=== PATIENT | male | born 1955 | race Caucasian/White ===

== ENCOUNTER 2018-10-24 01:25 | Observation (INO) | payer MEDICARE ==
[~2018-10-24] VITALS: Ht 154.9 cm; Wt 97.3 kg
--- NOTE | ~2018-10-24 | HEMODYNAMI ---
PATIENT:ZORAN MAS MEDICAL RECORD: [id number] : 57 LOCATION:[address] ADMISSION DATE: 10/24/18 Generatedon:10/24/201815:46 Patient name: ZORAN MAS Patient #: [id number] SSN: : Date of study: 10/24/2018 Page: Of Hemodynamic Procedure Report Patient Data Patient Demographics Procedure consent was obtained First Name: ZORAN Gender: Male Last Name: TG : 1955 Patient #: [id number] Age: 63 year(s) Race: Unknown Additional ID: [id number] Contact details Address: [address] [place] [address] rd State: [place] City: [place] Zip code: [address] Past Medical History Allergies Allergen Reaction Date Comments Reported Other allergy 10/24/2018 ASA Admission Admission Data Admission Date: 10/24/2018 Admission Time: 2:41 Room #: 2122 Lab Results Lab Result Date: 10/24/2018 Lab Result Time: 0:00 Biochemistry Name Units Result Min Max BUN mg/dl 14 --(--*-)-- 7 18 Creatinine mg/dl 0.6 --(*---)-- 0.6 1.3 CBC Name Units Result Min Max Hemoglobin g/dl 11.4 *-(----)-- 13.5 17.5 Procedure Procedure Types Cath Procedure Diagnostic Procedure [facility] w/Coronaries Sedation Charges Moderate Sedation up to 15 minutes PCI Procedure Coronary Stent Coronary Stent Initial Procedure Description Procedure Date Procedure Date: 10/24/2018 Procedure Start Time: 15:28 Procedure End Time: 15:43 Procedure Staff Name Function Denver Clarke MD Performing Physician Bushra Perea RT Monitor Nalini Collazo RN Nurse Beverley Fay RT Scrub Procedure Data Cath Procedure Fluoroscopy Diagnostic fluoroscopy Total fluoroscopy Time: 3.5 time: 3.5 min min Diagnostic fluoroscopy Total fluoroscopy dose: 766 dose: 766 mGy mGy Contrast Material Contrast Material Type Amount (ml) Isovue 300 101 Entry Location Entry Primary Successful Side Size Upsize Upsize Entry Closure Succes sful Closure Location (Fr) 1 (Fr) 2 (Fr) Remarks Device Remarks Femoral Right 5 Fr 6 Fr Exoseal artery Short Estimated blood loss: 10 ml Diagnostic catheters Device Type Used For End Catheter Placement MULTIPACK JL 4.0 5Fr Procedure catheter MULTIPACK 3DRC 5Fr Procedure catheter MULTIPACK Pigtail 5 Fr Procedure catheter Procedure Complications No complications Procedure Medications Medication Administration Route Dosage Oxygen etCO2 Nasal cannula 2 l/min Heparin Flush Bag added to field 2 bags (1000units/500ml NS) 0.9% NaCl I.V. 100 ml/hr Lidocaine 2% added to field 20 Fentanyl I.V. 50 mcg Versed I.V. 1 mg Fentanyl I.V. 50 mcg Versed I.V. 1 mg Heparin Bolus I.V. 4000 units Integrilin (Bolus I.V. 9 ml 2mg/ml) Integrilin (Bolus wasted 1 ml 2mg/ml) Fentanyl I.V. 50 mcg Fentanyl I.V. 50 mcg Plavix P.O. 600 mg Hemodynamics Rest HGB: 11.4 (g/dl) Heart Rate: 47 (bpm) Pressure Samples Time Site Value (mmHg) Purpose Heart Use Rate(bpm) 15:33 LV 130/-6,16 EDP 60 15:33 AO 125/58(87) Pullback 62 15:33 LV 141/15,27 Pullback 62 Gradients Valve Time Site 1 Site 2 Mean SEP/DFP Peak To Heart Use (mmHg) (sec/min) Peak Rate (mmHg) (bpm) Aortic 15:33 LV AO 16 21 16 62 141/15,27 125/58(87) Calculations Valve P-P Mean Valve Index Valve Source Name Gradient Area Flow (cm2) Aortic 16 16 16 16 Snapshots Pre Cath Intra NCS Post Cath Vital Signs Time Heart Resp SPO2 etCO2 NIBP (mmHg) Rhythm Pain Sedation Rate (ipm) (%) (mmHg) Status Level (bpm) 15:19:24 49 17 99 30.8 136/75(94) NSR 0 (11) 10(A) , No pain 15:23:30 56 16 99 40.6 130/73(93) NSR 0 (11) 10(A) , No pain 15:27:31 58 16 98 39.8 115/81(92) NSR 0 (11) 9(A) , No pain 15:31:39 59 16 96 40.6 126/73(96) NSR 0 (11) 9(A) , No pain 15:35:49 65 17 98 36 131/77(110) NSR 0 (11) 9(A) , No pain 15:40:01 66 16 95 38.3 127/75(108) NSR 0 (11) 9(A) , No pain 15:43:30 64 17 96 42.1 131/85(113) NSR 0 (11) 9(A) , No pain Medications Time Medication Route Dose Verified Delivered Reason Notes Effectiveness by by 15:21:32 Oxygen etCO2 2 Buffie Denver Per physician Nasal l/min Vale Clarke cannula 15:21:39 Heparin Flush added 2 Buffie Denver used for Bag to bags Vale Clarke procedure (1000units/500ml field TORIBIO NS) 15:21:50 0.9% NaCl I.V. 100 Buffie Denver Per physician ml/hr Vale Clarke MD 15:22:00 Lidocaine 2% added 20ml Buffie Denver used for to vial Vale Clarke procedure field TORIBIO 15:24:36 Fentanyl I.V. 50 Buffie Denver for sedation mcg Vale Clarke MD 15:24:42 Versed I.V. 1 mg Buffie Denver for sedation Vale Clarke MD 15:29:03 Fentanyl I.V. 50 Buffie Denver for sedation mcg Vale Clarke MD 15:29:07 Versed I.V. 1 mg Buffie Denver for sedation Vale Clarke MD 15:35:03 Heparin Bolus I.V. 4000 Buffie Denver for units Vale Clarke anticoagulation 15:35:13 Integrilin I.V. 9 ml Buffie Denver for (Bolus 2mg/ml) Vale Clarke antiplatelet therapy 15:35:18 Integrilin wasted 1 ml Buffie Denver for (Bolus 2mg/ml) Vale Clarke antiplatelet therapy 15:35:42 Fentanyl I.V. 50 Buffie Denver for sedation mcg Vale Clarke MD 15:38:19 Fentanyl I.V. 50 Buffie Denver for sedation mcg Vale Clarke MD 15:42:39 Plavix P.O. 600 Buffie Denver for mg Vale RN Tricia antiplatelet therapy Procedure Log Time Note 14:54:55 Time tracking: Call back (After hours or weekends) 14:54:58 Plan of Care:Hemodynamics will remain stable., Cardiac rhythm will remain stable., Comfort level will be maintained., Respiratory function will remain adequate., Patient/ family verbilizes understanding of procedure., Procedure tolerated without complication., Recovers from procedure without complications.. 15:18:13 Vital chart was started 15:18:56 Patient received from Med II to CCL 2 Alert and oriented. Tansferred to table in Supine position. 15:18:58 Warm blankets applied, and lorena hugger turned on for patient comfort. 15:18:58 Correct patient and procedure confirmed by team. 15:18:59 Signed procedure consent form obtained from patient. 15:19:00 ECG and BP/O2 sat monitors applied to patient. 15:19:02 Baseline sample Acquired. 15:19:06 Rhythm: sinus rhythm 15:19:08 Full Disclosure recording started 15:19:16 H&P Date Dictated: 10/23/2018 Within 30 days and on chart., H&P Addendum completed by physician on day of procedure. (MUST COMPLETE FOR ALL OUTPATIENTS). 15:19:17 Pre-procedure instructions explained to patient. 15:19:19 Family in waiting room. 15:19:22 Patient NPO since Midnight. 15:19:31 Patient allergic to Other allergyASA 15:19:34 Is the patient allergic to Iodine/contrast media? No. 15:19:36 Is patient on blood thinner?No 15:19:37 Patient diabetic? No. 15:19:41 Snore? Yes 15:19:43 Sleep apnea? No 15:19:50 Patient pain scale 0/10 ?. 15:20:36 IV patent on arrival in left hand with 0.9% NaCl at [facility]. 15:20:42 Lab results completed and on chart. 15:21:32 Oxygen 2 l/min etCO2 Nasal cannula was administered by Denver Clarke MD; Per physician; 15:21:39 Heparin Flush Bag (1000units/500ml NS) 2 bags added to field was administered by Denver Clarke MD; used for procedure; 15:21:50 0.9% NaCl 100 ml/hr I.V. was administered by Denver Clarke MD; Per physician; 15:22:00 Lidocaine 2% 20ml vial added to field was administered by Denver Clarke MD; used for procedure; 15:23:04 Lab Result : BUN 14 mg/dl 15:23:04 Lab Result : Creatinine 0.6 mg/dl 15:23:04 Lab Result : Hemoglobin 11.4 g/dl 15:23:10 Right groin area was prepped with chlora-prep and draped in sterile fashion 15:23:12 Alarms reviewed by R. N. 15:23:12 Sharps counted by scrub and verified by R.N. 15:23:13 Physician paged 15:23:14 Physician arrived 15:23:15 --------ALL STOP TIME OUT------ 15:23:16 Final Timeout: patient, procedure, and site verified with staff and physician. All members of the team are in agreement. 15:23:21 Right groin site verified by team. 15:23:29 Fire Safety Assessment: A--An alcohol-based skin anteseptic being used preoperatively., C--Open oxygen or nitrous oxide is being used. 15:23:33 Physical assessment completed. ASA score P 2 - A patient with mild systemic disease as per Denver Clarke MD. 15:23:37 Sedation plan: IV Moderate Sedation Medication:Versed, Fentanyl 15:23:42 Use device set Femoral Dx 15:23:45 ACIST Syringe (03949) opened to sterile field. 15:23:46 Bag Decanter (2002) opened to sterile field. 15:23:46 Medline Cath Pack ([id number]) opened to sterile field. 15:23:47 DIAGNOSTIC WIRE .035 260cm J wire (909689) opened to sterile field. 15:23:48 ACIST Hand Control (48644) opened to sterile field. 15:23:48 ACIST Manifold (53985) opened to sterile field. 15:23:48 DIAGNOSTIC Multipack 5Fr catheter set ([id number]) opened to sterile field. 15:23:51 SHEATH 5FR Watton (TBE316) opened to sterile field. 15:24:36 Fentanyl 50 mcg I.V. was administered by Denver Clarke MD; for sedation; 15:24:42 Versed 1 mg I.V. was administered by Denver Clarke MD; for sedation; 15::59 Procedure started. 15:28: Zero performed for pressure channel P1 15:28: Zero performed for pressure channel P1 15::26 Local anesthetic to right femoral artery with Lidocaine 2% by Denver Clarke MD.INITIAL ACCESS ONLY 15:28:34 A 5 Fr sheath was inserted into the Right Femoral artery 15::47 A MULTIPACK JL 4.0 5Fr catheter was advanced over the wire and used for Procedure. 15:29:03 Fentanyl 50 mcg I.V. was administered by Denver Clarke MD; for sedation; 15::07 Versed 1 mg I.V. was administered by Denver Clarke MD; for sedation; 15::24 LCA angiography performed. 15::56 Catheter removed. 15:30:03 A MULTIPACK 3DRC 5Fr catheter was advanced over the wire and used for Procedure. 15:30:07 RCA angiography performed. 15:32:02 A MULTIPACK Pigtail 5 Fr catheter was advanced over the wire and used for Procedure. 15:32:06 LV gram done using KING 15:32:49 EF : 55 % 15:33:23 Catheter removed. 15:33:31 GUIDE 6FR HS I catheter (LA6HSI) opened to sterile field. 15:33:32 WHISPER 300cm guide wire ([id number]) opened to sterile field. 15:33:33 INFLATOR Merit BasixCompak (NC8784) opened to sterile field. 15:33:33 SHEATH 6FR Watton (QYF726) opened to sterile field. 15:33:37 Proceeding to intervention. 15:33:47 Sheath upsized to a 6 Fr Short. 15:33:55 6 Fr HS guide catheter was inserted over the wire 15:34:01 Whisp wire advanced. 15:34:02 Wire advanced across lesion. 15:35:03 Heparin Bolus 4000 units I.V. was administered by Denver Clarke MD; for anticoagulation; 15:35:13 Integrilin (Bolus 2mg/ml) 9 ml I.V. was administered by Denver Clarke MD; for antiplatelet therapy; 15:35:18 Integrilin (Bolus 2mg/ml) 1 ml wasted was administered by Denver Clarke MD; for antiplatelet therapy; 15:35:42 Fentanyl 50 mcg I.V. was administered by Denver Clarke MD; for sedation; 15:38:19 Fentanyl 50 mcg I.V. was administered by Denver Clarke MD; for sedation; 15:40:18 Place stent Inflation Number: 1 A SONJA OTW 4.0 x 12 stent ([id number]) was prepped and advanced across the Mid RCA. The stent was deployed at 14 JENELLE for 0:33 (min:sec). 15:40:32 EXOSEAL 6Fr (EX600) opened to sterile field. 15:40:41 Balloon removed over the wire. 15:40:43 Wire removed. 15:40:44 Guide catheter removed. 15:41:12 Sheath removed intact; hemostasis achieved with Exoseal to the Right Femoral artery. 15:41:15 Procedure ended.(Physican Out) 15:41:27 Fluoroscopy time 03.50 minutes. 15:41:31 Fluoroscopy dose: 766 mGy 15:41:31 Flurop Dose total: 766 15:41:34 Contrast amount:Isovue 300 101ml. 15:41:37 Sharps counted by scrub and verified by R.N. 15:42:13 Insertion/operative site no bleeding no hematoma. 15:42:17 Post-op/insertion site Right Femoral artery dressed using a 4 x 4 and Tegaderm. 15:42:39 Plavix 600 mg P.O. was administered by Denver Clarke MD; for antiplatelet therapy; 15:42:51 Post-procedure physical assessment completed. ASA score P 2 - A patient with mild systemic disease as per Denver Clarke MD. 15:42:54 Post procedure rhythm: sinus rhythm 15:42:57 Estimated blood loss: 10 ml 15:42:59 Post procedure instruction explained to patient.Patient verbalizes understanding. 15:43:23 Procedure type changed to Cath procedure, Diagnostic procedure, LHC, LHC w/Coronaries, Sedation Charges, Moderate Sedation up to 15 minutes, PCI procedure, Coronary Stent, Coronary Stent Initial 15:43:25 Procedure and supply charges have been captured, reviewed, submitted and are correct. 15:43:43 Procedure Complication : No complications 15:43:46 Vital chart was stopped 15:43:47 See physician's report for complete and final results. 15:43:48 Report given to Pre/Post Procedure Room. 15:43:53 Patient transfered to [facility] with Stretcher. 15:43:54 Procedure ended. 15:43:54 Full Disclosure recording stopped 15:43:58 End room use (Document Last) 15:43:58 End room use (Document Last) Intervention Summary Intervention Notes Time ActionType Lesion and Equipment Action# Pressure Duration Attributes Used 15:40:18 Place stent Mid RCA SONJA OTW 4.0 1 14 00:33 x 12 stent ([id number]) Device Usage Item Name Manufacture Quantity Catalog Hospital Part Current Mini mal Lot# / Number Charge Number Stock Stock Serial# Code ACIST Syringe Acist 1 06787 371013 538632 956251 20 (91978) Medical Systems Inc Bag Decanter Microtek 1 989497 20151 173627 5 () Medical Inc. Medline Cath Medline 1 [id number] 905074 46324 116185 5 Pack ([id number]) DIAGNOSTIC St Teja 1 769683 936497 033595 722321 30 WIRE .035 260cm J wire (157174) ACIST Hand Acist 1 36497 264745 685627 822765 5 Control Medical (59842) Systems Inc ACIST Acist 1 22407 331196 926779 930373 5 Manifold Medical (31038) Systems Inc DIAGNOSTIC Cardinal 1 TV8305 768914 95946 634867 30 Multipack 5Fr Health catheter set (LA3036) SHEATH 5FR Terumo 1 [id number] 151312 191466 807969 5 Watton (BLH973) MULTIPACK JL Cardinal 1 717823 5 4.0 5Fr Health catheter MULTIPACK Cardinal 1 730059 5 3DRC 5Fr Health catheter MULTIPACK Cardinal 1 881733 5 Pigtail 5 Fr Health catheter GUIDE 6FR HS Medtronic 1 LA6HSI 385227 62984 734900 1 I catheter (LA6HSI) WHISPER 300cm Love 1 [id number] 775050 219964 776901 5 guide wire Vascular ([id number]) INFLATOR Merit 1 IK9769 922817 762096 127338 15 [facility] Medical BasixCompak (AE2672) SHEATH 6FR Terumo 1 GXB108 063781 570690 397436 40 Watton (PWI755) SONJA OTW 4.0 Medtronic 1 [id number] 329196 6895053 191916 5 [id number] x 12 stent ([id number]) EXOSEAL 6Fr Cardinal 1 EX600 002645 307323 188446 10 (EX600) Health Signature Audit Twisp Stage Time Signature Unsigned Intra-Procedure 10/24/2018 Bushra Perea 3:46:29 PM RT(R) Signatures Monitor : Bushra Perea Signature : RT Date : Time : [address] [place] [address]
[2018-10-24] MEDS ORDERED: SEROQUEL XR300 MG PO (01:36)
[2018-10-24] MEDS ORDERED: IMBRUVICA140 MG PO (01:37)
[2018-10-24] MEDS ORDERED: ESKALITH CR450 M1 PO (01:37)
[2018-10-24 01:53] LABS: BASOPHILS 0.6 % (0-2); HEMATOCRIT 36.2 % (42.0-54.0); IMMATURE GRANULOCYTES 0.3 % (0-5); LYMPHOCYTES 14.8 % (15-50); MCHC 33.1 g/dL (31.0-37.0); MCV 93.5 fL (80.0-100.0); MEAN PLATELET VOLUME 11.2 fL (7.4-10.4); MONOCYTES 10.7 % (2-11); NEUTROPHILS 69.6 % (40-80); PLATELET COUNT 200 10x3/uL (130-400); RBC 3.87 10x6/uL (4.20-6.10); RDW 13.7 % (11.5-14.5); WBC 6.8 10x3/uL (4.8-10.8)
[2018-10-24 02:02] LABS: INR 0.99 (0.85-1.17); PROTIME 12.6 SECONDS (11.6-15.0)
[2018-10-24 02:03] LABS: APTT 30.4 SECONDS (22.8-39.4)
[2018-10-24 02:08] LABS: ALBUMIN 3.2 g/dL (3.4-5.0); ALKALINE PHOSPHATASE 86 U/L (46-116); ALT (SGPT) 16 U/L (10-68); BILIRUBIN - TOTAL 0.87 mg/dL (0.2-1.3); CALC OSMOLALITY 288 mosm/kg (275-300); CALCIUM 8.5 mg/dL (8.5-10.1); CARBON DIOXIDE 25.3 mmol/L (21.0-32.0); CHLORIDE - SERUM 109 mmol/L (98-107); CREATININE - SERUM 0.7 mg/dL (0.6-1.3); GLUCOSE 120 mg/dL (74-106); POTASSIUM - SERUM 3.5 mmol/L (3.5-5.1); PROTEIN - SERUM 5.9 g/dL (6.4-8.2); SODIUM 144 mmol/L (136-145); UREA NITROGEN 15 mg/dL (7-18); eGFR NON AFRICAN AMERICAN > 90 mL/min (90-120)
[2018-10-24 02:20] LABS: CKMB 1.3 U/L (0.0-3.6); CREATINE KINASE 72 UL (21-232); TROPONIN-I 0.022 ng/mL (0.000-0.060)
--- NOTE | 2018-10-24 03:02 | NUR ---
PT GIVEN BLANKET.
[2018-10-24 03:47] VITALS: BP 117/70
--- NOTE | 2018-10-24 05:47 | NUR ---
PT TO FLOOR VIA WHEELCHAIR. A/O X 4. UP AB MALCOLM. AT BEDSIDE. DENIES PAIN AT THIS TIME. IV TO R AC SL. ROOM AIR. VITALS STABLE AT THIS TIME. ECG DONE AT THIS TIME, 51 SINUS MARITZA. TELE APPLIED, 52 SINUS MARITZA. SWOLLEN R UPPER ARM. PT STATES HE HAS A HERNIATED BICEP. LUNG SOUNDS CLEAR. NO FURTHER CONCERNS AT THIS TIME. BED LOWERED AND LOCKED. CL IN REACH. WILL CONTINUE TO [facility].
[2018-10-24 06:01] VITALS: BP 117/70; BMI 40.5
[2018-10-24 06:44] LABS: CKMB 1.4 U/L (0.0-3.6); CREATINE KINASE 53 UL (21-232); TROPONIN-I 0.017 ng/mL (0.000-0.060)
--- NOTE | 2018-10-24 07:05 | NUR ---
RECEIVED REPORT. ASSUMED CARE OF PATIENT. CALL LIGHT WITHIN REACH. PATIENT WITH EYES CLOSED. SB, 56 ON TELEMETRY. RESP EVEN AND UNLABORED. NO DISTRESS.
[2018-10-24 08:46] VITALS: BP 110/71
--- NOTE | 2018-10-24 09:38 | NUR ---
CONSENTS SIGNED AND PLACED ON CHART FOR HEART CATH TODAY
[2018-10-24 09:39] LABS: BASOPHILS 0.6 % (0-2); EOSINOPHILS 3.4 % (0-7); HEMATOCRIT 34.4 % (42.0-54.0); HEMOGLOBIN 11.4 g/dL (13.5-17.5); IMMATURE GRANULOCYTES 0.2 % (0-5); LYMPHOCYTES 7.3 % (15-50); MCH 31.1 pg (26.0-34.0); MCHC 33.1 g/dL (31.0-37.0); MEAN PLATELET VOLUME 11.2 fL (7.4-10.4); MONOCYTES 15.2 % (2-11); NEUTROPHILS 73.3 % (40-80); PLATELET COUNT 190 10x3/uL (130-400); RBC 3.66 10x6/uL (4.20-6.10); RDW 13.6 % (11.5-14.5); WBC 6.3 10x3/uL (4.8-10.8)
[2018-10-24 10:02] LABS: CALC OSMOLALITY 287 mosm/kg (275-300); CALCIUM 8.1 mg/dL (8.5-10.1); CARBON DIOXIDE 25.1 mmol/L (21.0-32.0); CHLORIDE - SERUM 111 mmol/L (98-107); CREATININE - SERUM 0.6 mg/dL (0.6-1.3); GLUCOSE 106 mg/dL (74-106); POTASSIUM - SERUM 3.8 mmol/L (3.5-5.1); SODIUM 144 mmol/L (136-145); UREA NITROGEN 14 mg/dL (7-18); eGFR NON AFRICAN AMERICAN > 90 mL/min (90-120)
--- NOTE | 2018-10-24 11:19 | NUR ---
RESTING IN BED. QUESTIONING WHEN HEART CATH WILL BE. UNABLE TO PROVIDE TIME TO PATIENT. CALL LIGHT WITHIN REACH. NO DISTRESS.
--- NOTE | 2018-10-24 12:02 | NUR ---
MEDICATED FOR HEADACHE AT THIS TIME. NO DISTRESS. PATIENTS AT BEDSIDE.
[2018-10-24 13:54] VITALS: Ht 154.9 cm; Wt 97.3 kg
[2018-10-24 13:59] LABS: CKMB 0.7 U/L (0.0-3.6); CREATINE KINASE 37 UL (21-232); TROPONIN-I < 0.017 ng/mL (0.000-0.060)
--- NOTE | 2018-10-24 14:02 | NUR ---
20 GAUGE IV PLACED TO LEFT WRIST X 1 STICK. GOOD BLOOD RETURN, EASY FLUSH. TAPED, DATED AND SECURED. TOLERATED IV PLACEMENT WELL. NO DISTRESS 20 GAUGE IV REMOVED FROM RIGHT AC. UNALBE TO FLUSH. 2X2 GAUZE APPLIED AND SECURED WITH TAPE. NO BLEEDING FROM SITE.
[2018-10-24 14:29] LABS: % SATURATION 23 % (15-55); IRON 54 ug/dl (35-150); TOTAL IRON BIND CAPACITY 227 ug/dl (260-445); UNSAT IRON BIND CAPACITY 173 ug/dl (150-375)
--- NOTE | 2018-10-24 14:45 | NUR ---
PATIENT LEFT UNIT VIA BED FOR HEART CATH. NO DISTRESS UPON LEAVING ROOM
--- NOTE | 2018-10-24 16:02 | NUR ---
PATIENT BACK TO UNIT FROM SCIENCE EDITOR AT THIS TIME.
--- NOTE | 2018-10-24 17:46 | NUR ---
RESTING WELL. CONSUMED PM MEAL WITH THE HELP OF HIS . PERIPHERAL PULSES PATIENT. NO HEMATOMA FORMATION. CALL LIGHT WITHIN REACH. NO DISTRESS.
[2018-10-24 19:50] VITALS: BP 142/73
--- NOTE | 2018-10-24 21:37 | NUR ---
INITIAL ROUNDS COMPLETED AT 1920 HRS. PT DENIED ANY DISCOMFORT. ASSESSMENT COMPLETED AT 1950 HRS. VSS. IV TO L WRIST SL. LUNGS CTA. R GROIN CLEAN, DRY AND INTACT WITHOUT SWELLING, BLEEDING OR BRUISING. STRONG PEDAL PULSES. SR PER CM HR 60. BEDREST UP AT 2009 . PT SAT UP FOR APPROX 5 MINUTES. NO CHAGES NOTED. PT THEN WALKED TO BR AND VOIDED 600CC OF YELLOW URINE. AMBULATED IN ROOM AFTERWARDS. NO CHANGES TO R GROIN OR PEDAL PULSES NOTED. DENIED ANY DIZZINESS. AMBULATED HALLS X3 AT 2100 H RS. RECHECKED R GROIN AND PEDAL PULSES WITH NO CHANGE NOTED. PT CURRENTLY WATCHING TV. CALL LIGHT WITHIN REACH.
[2018-10-24 23:35] VITALS: BP 146/73
--- NOTE | 2018-10-24 23:50 | NUR ---
PT SITTING UP IN THE RECLINER. DENIES ANY DISCOMFORT. NO CHANGES TO R GROIN OR PEDAL PULSES NOTED. CALL LIGHT WITHIN REACH.
--- NOTE | 2018-10-25 02:33 | NUR ---
PT SITTING UP IN A RECLINER READING. NO DISTRESS NOTED. CALL LIGHT WITHIN REACH.
[2018-10-25 03:55] VITALS: BP 148/76
[2018-10-25 04:01] LABS: APPEARANCE CLEAR (CLEAR); BILIRUBIN NEGATIVE (NEGATIVE); COLOR YELLOW (YELLOW); GLUCOSE NEGATIVE (NEGATIVE); KETONE NEGATIVE (NEGATIVE); NITRITE NEGATIVE (NEGATIVE); PROTEIN NEGATIVE (NEGATIVE); SPECIFIC GRAVITY 1.015 (1.005-1.020); UROBILINOGEN NORMAL (NORMAL)
[2018-10-25 04:12] LABS: UDS - AMPHET NEGATIVE QUAL (NEGATIVE); UDS - BARB NEGATIVE QUAL (NEGATIVE); UDS - BENZO POSITIVE QUAL (NEGATIVE); UDS - COCAINE NEGATIVE QUAL (NEGATIVE); UDS - OPIATE NEGATIVE QUAL (NEGATIVE); UDS - PCP NEGATIVE QUAL (NEGATIVE); UDS - THC NEGATIVE QUAL (NEGATIVE)
--- NOTE | 2018-10-25 04:21 | NUR ---
PT AWAKE, DENIES ANY DISCOMFORT. NO CHANGES TO R GROIN OR PEDAL PULSES NOTED. CALL LIGHT WITHIN REACH.
[2018-10-25 05:35] LABS: BASOPHILS 0.4 % (0-2); EOSINOPHILS 2.7 % (0-7); HEMATOCRIT 35.5 % (42.0-54.0); HEMOGLOBIN 11.5 g/dL (13.5-17.5); IMMATURE GRANULOCYTES 0.4 % (0-5); LYMPHOCYTES 6.1 % (15-50); MCH 30.7 pg (26.0-34.0); MCHC 32.4 g/dL (31.0-37.0); MCV 94.7 fL (80.0-100.0); MEAN PLATELET VOLUME 11.4 fL (7.4-10.4); MONOCYTES 13.9 % (2-11); NEUTROPHILS 76.5 % (40-80); RBC 3.75 10x6/uL (4.20-6.10)
[2018-10-25 05:42] LABS: PLATELET COUNT 229 10x3/uL (130-400); WBC 9.4 10x3/uL (4.8-10.8)
[2018-10-25 06:07] LABS: CALC OSMOLALITY 277 mosm/kg (275-300); CALCIUM 7.9 mg/dL (8.5-10.1); CARBON DIOXIDE 24.1 mmol/L (21.0-32.0); CHLORIDE - SERUM 106 mmol/L (98-107); CHOL - HDL RATIO 3.4 ratio (2.3-4.9); CHOLESTEROL, TOTAL 113 mg/dL (0-200); CREATININE - SERUM 0.7 mg/dL (0.6-1.3); GLUCOSE 105 mg/dL (74-106); HDL CHOLESTEROL 33 mg/dL (32-96); LDL CHOLESTEROL 64 mg/dL (0-100); LDL-HDL RATIO 1.9 ratio (1.5-3.5); SODIUM 139 mmol/L (136-145); TRIGLYCERIDE 81 mg/dL (30-200); UREA NITROGEN 12 mg/dL (7-18); eGFR NON AFRICAN AMERICAN > 90 mL/min (90-120)
--- NOTE | 2018-10-25 06:22 | NUR ---
VSS THROUGHOUT NIGHT. SR/SB PER CM. PT DENIED ANY DISCOMFORT. NEEDS MET; WILL CONTINUE TO MONITOR.
--- NOTE | 2018-10-25 07:00 | NUR ---
RECEIVED REPORT. ASSUMED CARE OF PATIENT. PATIENT UP AMBULATING IN HALLWAY. NO DISTRESS. SB 51 ON TELEMETRY. PATIENT WANTING TO GO HOME TODAY.
[2018-10-25 08:49] VITALS: BP 157/85
--- NOTE | 2018-10-25 09:18 | NUR ---
NEW ORDER OBTAINED TO INITIATE PLAVIX THIS AM. HARD SCRIPT ON PATIENT CHART.
[2018-10-25] MEDS ORDERED: PLAVIX75 MG PO (09:24)
[2018-10-25] MEDS ORDERED: LIPITOR40 MG PO (09:27)
--- NOTE | 2018-10-25 10:26 | NUR ---
20 GAUGE IV REMOVED FROM LEFT WRIST. CATHETER TIP INTACT. NO BLEEDING FROM SITE. 2X2 GAUZE APPLIED AND SECURED WITH BANDAID AT 1010. DISCHARGE INSTRUCTIONS PROVIDED TO PATIENT AND . HARD SCRIPT PROVIDED FOR PLAVIX. ID CARD FOR STENT TO RCA PROVIDED.
--- NOTE | 2018-10-25 10:31 | NUR ---
PATIENT VERBALIZED UNDERSTANDING OF ALL INSTRUCTIONS PROVIDED. PATIENT LEFT UNIT AT THIS TIME WITH ALL PERSONAL BELONGINGS. PATIENT DISCHARGED TO HOME WITH HIS . PATIENT IN NO DISTRESS UPON LEAVING UNIT.
--- NOTE | 2018-10-26 11:08 | MORECARE ---
CASE MANAGEMENT DISCHARGE SUMMARY PATIENT: ZORAN MAS UNIT: [id number] ADM DATE: 10/24/18 AGE: 63 : 57 SEX: M ROOM/BED: D.2122 AUTHOR: ROBINSON LANG PHYSICIAN: REFERRING PHYSICIAN: ISIDRA PRICE MD DATE OF SERVICE: 10/26/18 Discharge Plan Patient Name: ZORAN MAS Facility: [facility]:[place] : 1955 Planned Disposition: Home Anticipated Discharge Date: 10/25/18 Discharge Date: 10/25/2018 Expected LOS: 1 Initial Reviewer: [email or web address] Initial Review Date: 10/26/2018 Generated: 10/26/18 12:07 pm Coverage Notice Reviewer: [email or web address] Bruce Arce Notice Issued Date-Time: 10/24/2018 19:30 Notice Type: Medicare Outpatient Observation Notice Notice Delivered To: Patient Relationship to Patient: Clarity Developer Name: Delivery Method: HAND - Hand Delivered Tara Days: Prior Verbal Notification: Recipient Understood Notice: Yes Recipient Signature: Yes Med Rec Note Co-signed by Attending: Coverage Notice Comment: Patient Name: ZORAN MAS Page [phone] at 1108 All edits/amendments must be made on the electronic document DICTATION DATE: 10/26/181106 MANAGER OF COMPENSATION: BATOOL 10/26/181106 RPT#: [id number] DC DATE:10/25/18 STATUS: DIS IN [facility] [address] [place] [address] END OF REPORT
[2018-10-27 12:17] LABS: FOLATE (FOLIC ACID) - SERUM 12.5 ng/mL (>3.0)
--- NOTE | 2018-10-30 12:22 | CN ---
PATIENT NAME:ZORAN MAS MEDICAL RECORD: [id number] : 57 LOCATION:[facility].2122 ADMIT DATE: 10/24/18 ACCOUNT: [id number] CONSULTING PHYSICIAN: YUDY SMYTH MD REFERRING PHYSICIAN: ISIDRA PRICE MD DATE OF CONSULTATION: 10/24/2018 HISTORY OF PRESENT ILLNESS: A 63-year-old gentleman with no known history of coronary artery disease. 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 He has been having marked dyspnea on exertion and chest pain over the past probably 2 weeks. He had episode of rest symptomology yesterday. Decreased effort and tolerance overall. Does have family history of coronary artery disease. We are asked to see him concerning his cardiovascular status. PAST MEDICAL HISTORY: Includes; 1. History of CLL. 2. Bipolar disorder. MEDICATIONS: Include imbruvica 420 mg p.o. every day, lithium 450 two tablets b.i.d., Seroquel 300 mg at bedtime. SOCIAL HISTORY: Quit drinking over 2 decades ago. He is a nonsmoker. Easily takes care of all his ADLs. No set exercise program. REVIEW OF SYSTEMS: The patient reports easy bruising but reports no swollen glands. The patient reports no fever, no night sweats, no significant weight gain, no significant weight loss. No significant exercise tolerance. The patient reports no dry eyes, no irritation, no vision change. Patient reports no difficulty hearing and no ear pain. Patient reports no frequent nose bleeds or nose and sinus problems. Patient reports on arm pain on exertion. No shortness of breath while lying down. No history of heart murmur. Patient reports no cough, no wheezing or coughing up blood. Patient reports no abdominal pain, no vomiting. Normal appetite. No diarrhea and not vomiting blood. No nausea and no constipation. Patient reports no incontinence. No difficulty urinating. No hematuria. No increased frequency. Patient reports no muscle aches. No weakness, no arthralgias, no back pain. No swelling of the extremities. Patient reports no abnormal mole, no jaundice, no rashes. Reports no loss of consciousness. No weakness and no numbness. No seizures, dizziness, or headaches. The patient reports no depression, no sleep disturbance, feeling safe in a relationship and no alcohol abuse. Patient reports on fatigue. Reports no runny nose or sinus pressure. No itching, no hives, and no frequent sneezing. PHYSICAL EXAMINATION: GENERAL: Pleasant, in no acute distress. VITAL SIGNS: Blood pressure 110/71, pulse 74 and regular. HEENT: Normocephalic, atraumatic. NECK: No JVD or bruit. HEART: Regular. LUNGS: Lung sne are clear. ABDOMEN: Soft, nontender. EXTREMITIES: Pulses 2+. There is no edema. DIAGNOSTIC DATA: ECG without acute change. CONSULT REPORT [id number] ZORAN MAS IMPRESSION: Progressive angina. PLAN: Diagnostic angiography. Intervention based on the above. TRANSINT:[id number] Voice Confirmation ID: [id number] DOCUMENT ID: [id number] YUDY SMYTH MD at 1222 CC: [id number] DICTATION DATE: 10/24/18 1152 DIRECTOR AUTOMOTIVE: 10/24/18 1433 DIS IN 10/25/18 [id number] [place] [address]
--- NOTE | 2018-10-30 12:22 | OP ---
PATIENT NAME: ZORAN MAS MEDICAL RECORD: [id number] :57 LOCATION:D.M2 D.2122 ADMISSION DATE:10/24/18 SURGEON: YUDY SMYTH MD DATE OF OPERATION: 10/24/2018 PROCEDURES: Left heart catheterization, selective coronary angiography, plus intervention to the right, right femoral artery approach. CATHETERS: A 5-Uzbek sheath, 5/4 left and right Kylah, 5/4 pig. The procedure was well tolerated. Proceeded with PTCA and stenting of the right when procedure was finished. FINDINGS: Left ventriculography in 30-degree KING view: Normal wall motion. Normal systolic function. CORONARY ANATOMY: LEFT MAIN: Left main is free of disease. LAD: LAD is free of disease in the diagonal system. CIRCUMFLEX: Free of disease in the marginal system. RIGHT CORONARY ARTERY: Dominant artery, gives rise to PDA, shows a discrete 80% stenosis right at the takeoff of RV branch. PLAN: Intervention momentarily. DESCRIPTION OF PROCEDURE: A 5-Uzbek sheath was changed for a 6-Uzbek sheath. Hockey stick guide catheter provided good guide catheter support, followed 300-cm Whisper wire. Stent deployed was a 4.0 x 12 Matthieu drug-eluting stent up to 14 atmospheres. Final angiography shows excellent resolution of 80% stenosis. No significant residual. SUHAIL flow was 3 throughout the procedure. Heparin and Integrilin were used during the case. Sheath was closed with ExoSeal device. Plavix was loaded in the lab. TRANSINT:[id number] Voice Confirmation ID: [id number] DOCUMENT ID: [id number] YUDY SMYTH MD at 1222 CC: [id number] DICTATION DATE: 10/24/18 1549 PLATE FURNACE OPERATOR: 10/25/18 0105 DIS IN 10/25/18 [facility] [address] [place] [address]
== END 2018-10-25 10:30 | disposition home or self-care (01) ==
LOC: D.ER 01:25 → OBSVTIME 02:41 → D.EDHOLD 02:41 → D.M2 04:22
PROVIDERS: Emergency Medicine; Internal Medicine Interventional Cardiology; ADMIT Internal Medicine Nephrology
DX: I25.119 Atherosclerotic heart disease of native coronary artery with unspecified angina pectoris (principal); Z85.6 Personal history of leukemia; F31.9 Bipolar disorder, unspecified; D50.9 Iron deficiency anemia, unspecified
CPT/HCPCS: 93458; C9600